=== PATIENT | female | born 1930 | race Caucasian/White ===

== ENCOUNTER 2019-04-23 22:34 | Inpatient (IN) ==
[2019-04-24] MEDS ORDERED: Naloxone 0.4 MG/ML INJ IVP PRN (03:16)
[2019-04-24 04:09] LABS: Basophils % 0.4 %; Hematocrit 23.8 % (35.3-44.9); Hemoglobin 7.8 g/dL (11.5-15.4); Immature Granulocytes % 2.6 % (0-4); Lymphocytes # 0.9 K/mcL (0.6-4.6); Lymphocytes % 12.3 %; Mean Corpuscular HGB Conc 32.8 g/dL (31.6-35.5); Mean Corpuscular Hemoglobin 34.4 pg (28.0-33.3); Mean Corpuscular Volume 104.8 fL (83.0-100.0); Mean Platelet Volume 10.5 fL (9.4-12.4); Monocytes # 0.3 K/mcL (0.0-1.3); Monocytes % 3.9 %; Neutrophils # 6.2 K/mcL (1.6-8.9); Nucleated Red Blood Cells 0.9 /100 WBC (0); Platelet Count 316 K/mcL (140-400); Red Blood Count 2.27 M/mcL (3.82-4.97); Red Cell Distribution Width 18.6 % (11.5-14.5); Segmented Neutrophils % 80.8 %; White Blood Count 7.7 K/mcL (4.3-11.1)
[2019-04-24 04:17] LABS: INR 1.1
[2019-04-24 04:27] LABS: Albumin 3.3 g/dL (3.5-5.7); Albumin/Globulin Ratio 0.8 (1.1-2.2); Calcium 8.9 mg/dL (8.6-10.3); Globulin 4.3 g/dL (2.4-3.5); Magnesium 1.9 mg/dL (1.6-2.6); Phosphorous 3.8 mg/dL (2.7-4.5); Potassium 4.3 mEq/L (3.5-5.1); Total Protein 7.6 g/dL (6.4-8.9)
[2019-04-24 04:51] LABS: Immature Reticulocyte % 24.1 % (11.0-38.0); Retculocyte # 0.04 M/mcL (0.05-0.10); Reticulocyte % 1.8 % (1.6-2.8)
[2019-04-24 04:53] LABS: Vitamin D 25 Hydroxy 10 ng/mL (30-80)
[2019-04-24 04:55] LABS: Folate > 22.3 ng/mL (3.0-16.0); Vitamin B12 413 pg/mL (250-1100)
[2019-04-24] MEDS: *HR* Heparin 5,000 UNIT/ML VIAL SQ SCH ×3 (05:12→21:16)
[2019-04-24] MEDS ORDERED: *HR* LORazepam 2 MG/ML VIAL IVP ONE (11:23)
[2019-04-25] MEDS: *HR* Heparin 5,000 UNIT/ML VIAL SQ SCH ×3 (05:32→21:35)
[2019-04-25 07:40] LABS: Hematocrit 22.4 % (35.3-44.9); Hemoglobin 7.1 g/dL (11.5-15.4); Mean Corpuscular HGB Conc 31.7 g/dL (31.6-35.5); Mean Corpuscular Hemoglobin 34.3 pg (28.0-33.3); Mean Corpuscular Volume 108.2 fL (83.0-100.0); Mean Platelet Volume 10.9 fL (9.4-12.4); Platelet Count 317 K/mcL (140-400); Red Blood Count 2.07 M/mcL (3.82-4.97); Red Cell Distribution Width 18.6 % (11.5-14.5); White Blood Count 8.5 K/mcL (4.3-11.1)
[2019-04-25] MEDS ORDERED: Torsemide 20 MG TABLET PO SCH (09:00)
[2019-04-25 09:09] LABS: Calcium 8.9 mg/dL (8.6-10.3); Potassium 4.2 mEq/L (3.5-5.1)
[2019-04-25] MEDS: Folic Acid 1 MG TABLET PO SCH (09:41)
[2019-04-25 18:30] LABS: Hematocrit 22.8 % (35.3-44.9); Hemoglobin 7.7 g/dL (11.5-15.4)
[2019-04-26 04:30] LABS: Hematocrit 22.3 % (35.3-44.9); Mean Corpuscular HGB Conc 31.4 g/dL (31.6-35.5); Mean Corpuscular Hemoglobin 34.3 pg (28.0-33.3); Mean Corpuscular Volume 109.3 fL (83.0-100.0); Mean Platelet Volume 10.5 fL (9.4-12.4); Platelet Count 299 K/mcL (140-400); Red Blood Count 2.04 M/mcL (3.82-4.97); Red Cell Distribution Width 18.7 % (11.5-14.5); White Blood Count 8.1 K/mcL (4.3-11.1)
[2019-04-26 04:56] LABS: Calcium 8.7 mg/dL (8.6-10.3); Potassium 3.6 mEq/L (3.5-5.1)
[2019-04-26] MEDS: *HR* Heparin 5,000 UNIT/ML VIAL SQ SCH ×3 (05:10→23:20)
[2019-04-26] MEDS: Folic Acid 1 MG TABLET PO SCH (08:51)
[2019-04-26] MEDS ORDERED: Acetaminophen IV 500 MG/50 ML INFUS..BTL IVPB ONE (08:59)
[2019-04-26 11:05] LABS: Uric Acid 9.4 mg/dL (2.3-7.6)
[2019-04-26] MEDS: predniSONE 20 MG TABLET PO SCH (16:47)
[2019-04-26 18:07] LABS: % Iron Saturation 23 % (15-50); Iron 57 mcg/dL (50-170); Transferrin 177 mg/dL (203-362)
[2019-04-27] MEDS: *HR* Heparin 5,000 UNIT/ML VIAL SQ SCH ×3 (05:32→21:21)
[2019-04-27 07:19] LABS: Basophils % 0.2 %; Hematocrit 22.7 % (35.3-44.9); Hemoglobin 7.2 g/dL (11.5-15.4); Immature Granulocytes % 1.5 % (0-4); Lymphocytes # 1.1 K/mcL (0.6-4.6); Lymphocytes % 22.2 %; Mean Corpuscular HGB Conc 31.7 g/dL (31.6-35.5); Mean Corpuscular Volume 107.1 fL (83.0-100.0); Mean Platelet Volume 10.8 fL (9.4-12.4); Monocytes # 0.6 K/mcL (0.0-1.3); Monocytes % 12.1 %; Neutrophils # 3.1 K/mcL (1.6-8.9); Platelet Count 314 K/mcL (140-400); Red Blood Count 2.12 M/mcL (3.82-4.97); Red Cell Distribution Width 18.1 % (11.5-14.5); White Blood Count 4.8 K/mcL (4.3-11.1)
[2019-04-27 07:42] LABS: Calcium 8.6 mg/dL (8.6-10.3); Potassium 4.2 mEq/L (3.5-5.1)
[2019-04-27] MEDS: predniSONE 20 MG TABLET PO SCH (08:52)
[2019-04-27] MEDS: Folic Acid 1 MG TABLET PO SCH (08:52)
[2019-04-28 03:49] LABS: Hematocrit 21.9 % (35.3-44.9); Hemoglobin 7.3 g/dL (11.5-15.4); Mean Corpuscular HGB Conc 33.3 g/dL (31.6-35.5); Mean Corpuscular Hemoglobin 34.1 pg (28.0-33.3); Mean Corpuscular Volume 102.3 fL (83.0-100.0); Mean Platelet Volume 10.1 fL (9.4-12.4); Platelet Count 304 K/mcL (140-400); Red Blood Count 2.14 M/mcL (3.82-4.97); Red Cell Distribution Width 18.1 % (11.5-14.5); White Blood Count 6.4 K/mcL (4.3-11.1)
[2019-04-28 04:15] LABS: Calcium 8.9 mg/dL (8.6-10.3); Potassium 4.2 mEq/L (3.5-5.1)
[2019-04-28] MEDS: *HR* Heparin 5,000 UNIT/ML VIAL SQ SCH ×3 (05:35→20:13)
[2019-04-28] MEDS: predniSONE 20 MG TABLET PO SCH (08:27)
[2019-04-28] MEDS: Folic Acid 1 MG TABLET PO SCH (08:27)
[2019-04-28] MEDS ORDERED: traZODone 50 MG TABLET PO PRN (10:20)
[2019-04-28] MEDS ORDERED: Melatonin 3 MG TABLET PO SCH (21:00)
[2019-04-29] MEDS: *HR* Heparin 5,000 UNIT/ML VIAL SQ SCH (05:17)
[2019-04-29 06:33] LABS: Hematocrit 22.5 % (35.3-44.9); Hemoglobin 7.3 g/dL (11.5-15.4); Mean Corpuscular HGB Conc 32.4 g/dL (31.6-35.5); Mean Corpuscular Hemoglobin 33.6 pg (28.0-33.3); Mean Corpuscular Volume 103.7 fL (83.0-100.0); Mean Platelet Volume 10.3 fL (9.4-12.4); Platelet Count 319 K/mcL (140-400); Red Blood Count 2.17 M/mcL (3.82-4.97); Red Cell Distribution Width 18.3 % (11.5-14.5); Segmented Neutrophils % 41.9 %; White Blood Count 6.1 K/mcL (4.3-11.1)
[2019-04-29 06:34] LABS: Basophils % 0.3 %; Eosinophils # 0.1 K/mcL (0.0-0.6); Immature Granulocytes % 1.1 % (0-4); Lymphocytes # 2.4 K/mcL (0.6-4.6); Lymphocytes % 39.7 %; Neutrophils # 2.6 K/mcL (1.6-8.9); Nucleated Red Blood Cells 1.1 /100 WBC (0)
[2019-04-29 06:56] LABS: Calcium 8.7 mg/dL (8.6-10.3); Potassium 4.2 mEq/L (3.5-5.1)
[2019-04-29] MEDS: predniSONE 20 MG TABLET PO SCH (08:23)
[2019-04-29] MEDS: Folic Acid 1 MG TABLET PO SCH (08:23)
[2019-04-29 11:02] VITALS: BP 157/65
== END 2019-04-29 12:57 | DRG 552 ==
LOC: 3NENU → SUATTDRO 04-24 00:40
PROVIDERS: ADMIT Family Medicine; ATTEND Internal Medicine

== ENCOUNTER 2020-06-16 00:54 | Inpatient (IN) ==
[2020-06-16] MEDS ORDERED: Naloxone 0.4 MG/ML INJ IVP PRN (12:53)
[2020-06-16] MEDS ORDERED: Ondansetron 4 MG/2 ML VIAL IVP PRN (12:59)
[2020-06-16 14:21] LABS: Hematocrit 23.8 % (35.3-44.9); Hemoglobin 7.5 g/dL (11.5-15.4); Mean Corpuscular HGB Conc 31.5 g/dL (31.6-35.5); Mean Corpuscular Hemoglobin 30.4 pg (28.0-33.3); Mean Corpuscular Volume 96.4 fL (83.0-100.0); Mean Platelet Volume 11.3 fL (9.4-12.4); Nucleated Red Blood Cells 4.2 /100 WBC (0); Platelet Count 273 K/mcL (140-400); Red Blood Count 2.47 M/mcL (3.82-4.97); Red Cell Distribution Width 23.2 % (11.5-14.5); White Blood Count 8.5 K/mcL (4.3-11.1)
[2020-06-16 14:26] LABS: INR 1.2; Prothrombin Time 14.2 Seconds (9.4-12.1)
[2020-06-16 14:40] LABS: Calcium 8.4 mg/dL (8.6-10.3); Potassium 4.4 mEq/L (3.5-5.1)
[2020-06-16 14:41] LABS: Troponin I 0.03 ng/mL (< 0.04)
[2020-06-16] MEDS: Pantoprazole 40 MG VIAL IVP SCH ×2 (14:52→18:19)
[2020-06-16] MEDS: MethylPREDNISolone 40 MG/ML VIAL IVP SCH (14:52)
[2020-06-16 14:57] LABS: Anisocytosis 2+ (Not Present); Hypochromasia Present (Not Present); Lymphocytes # 1.7 K/mcL (0.6-4.6); Neutrophils # 5.8 K/mcL (1.6-8.9)
[2020-06-16 14:58] LABS: Ovalocytes 1+ (Not Present); Platelet Estimate Normal (Normal); Poikilocytosis 1+ (Not Present); Target Cells 1+ (Not Present)
[2020-06-16 14:59] LABS: Polychromasia 1+ (Not Present)
[2020-06-16] MEDS ORDERED: Ipratropium/Albuterol Neb 3 ML IH SCH (16:00)
[2020-06-16] MEDS: Ipratropium/Albuterol Neb 3 ML IH SCH ×3 (16:09→20:08)
[2020-06-16] MEDS ORDERED: Piperacillin/Tazobactam 3.375 GM in 0.9 % Sodium Chloride Mini Bag 100 ML IVPB ONE (18:58)
[2020-06-16 20:30] LABS: Hematocrit 22.6 % (35.3-44.9); Hemoglobin 7.2 g/dL (11.5-15.4); Mean Corpuscular HGB Conc 31.9 g/dL (31.6-35.5); Mean Corpuscular Hemoglobin 30.9 pg (28.0-33.3); Nucleated Red Blood Cells 3.3 /100 WBC (0); Platelet Count 274 K/mcL (140-400); Red Blood Count 2.33 M/mcL (3.82-4.97); Red Cell Distribution Width 23.6 % (11.5-14.5); White Blood Count 8.7 K/mcL (4.3-11.1)
[2020-06-16] MEDS: Piperacillin/Tazobactam 3.375 GM in 0.9 % Sodium Chloride Mini Bag 100 ML IVPB SCH (21:02)
[2020-06-16 21:03] LABS: Anisocytosis 2+ (Not Present); Hypochromasia Present (Not Present); Platelet Estimate Normal (Normal)
[2020-06-16 21:06] LABS: Ovalocytes 1+ (Not Present)
[2020-06-16 21:07] LABS: Poikilocytosis 1+ (Not Present)
[2020-06-16 21:09] LABS: Lymphocytes # 0.7 K/mcL (0.6-4.6); Monocytes # 0.2 K/mcL (0.0-1.3); Neutrophils # 7.7 K/mcL (1.6-8.9)
[2020-06-16] MEDS ORDERED: 0.9 % Sodium Chloride 250 ML IVC SCH (21:15)
[2020-06-16 21:32] LABS: Adenovirus Not Detected (Not Detect); Bordetella Pertussis Not Detected (Not Detect); Chlamydophila pneumoniae Not Detected (Not Detect); Coronavirus 229E Not Detected (Not Detect); Coronavirus HKU1 Not Detected (Not Detect); Coronavirus NL63 Not Detected (Not Detect); Coronavirus OC43 Not Detected (Not Detect); Human Metapneumovirus Not Detected (Not Detect); Human Rhinovirus/Enterovirus Not Detected (Not Detect); Influenza A Subtype 2009 H1 Not Detected (Not Detect); Influenza B Not Detected (Not Detect); Mycoplasma pneumoniae Not Detected (Not Detect); Parainfluenza Virus 1 Not Detected (Not Detect); Parainfluenza Virus 2 Not Detected (Not Detect); Parainfluenza Virus 3 Not Detected (Not Detect); Parainfluenza Virus 4 Not Detected (Not Detect); Respiratory Syncytial Virus Not Detected (Not Detect); SARS-CoV-2 Not Detected (Not Detect)
[2020-06-17] MEDS: Ipratropium/Albuterol Neb 3 ML IH SCH ×7 (00:12→23:25)
[2020-06-17] MEDS ORDERED: Acetaminophen IV 500 MG/50 ML BAG IVPB ONE (01:15)
[2020-06-17] MEDS: MethylPREDNISolone 40 MG/ML VIAL IVP SCH ×2 (02:55→14:59)
[2020-06-17] MEDS: Piperacillin/Tazobactam 3.375 GM in 0.9 % Sodium Chloride Mini Bag 100 ML IVPB SCH ×3 (04:44→21:49)
[2020-06-17 05:24] LABS: Basophils % 0.8 %; Hematocrit 23.1 % (35.3-44.9); Hemoglobin 7.4 g/dL (11.5-15.4); Immature Granulocytes % 2.2 % (0-4); Lymphocytes # 0.4 K/mcL (0.6-4.6); Lymphocytes % 7.1 %; Mean Corpuscular Hemoglobin 30.7 pg (28.0-33.3); Mean Corpuscular Volume 95.9 fL (83.0-100.0); Mean Platelet Volume 10.6 fL (9.4-12.4); Monocytes # 0.6 K/mcL (0.0-1.3); Monocytes % 11.5 %; Nucleated Red Blood Cells 4.5 /100 WBC (0); Platelet Count 232 K/mcL (140-400); Red Blood Count 2.41 M/mcL (3.82-4.97); Red Cell Distribution Width 22.1 % (11.5-14.5); Segmented Neutrophils % 78.4 %; White Blood Count 5.1 K/mcL (4.3-11.1)
[2020-06-17 05:42] LABS: Anisocytosis 2+ (Not Present); Macrocytosis Present (Not Present); Ovalocytes 1+ (Not Present); Poikilocytosis 1+ (Not Present); Target Cells 1+ (Not Present)
[2020-06-17 05:43] LABS: Calcium 8.2 mg/dL (8.6-10.3); Platelet Estimate Normal (Normal); Potassium 4.4 mEq/L (3.5-5.1)
[2020-06-17] MEDS: Pantoprazole 40 MG VIAL IVP SCH ×2 (06:06→17:25)
[2020-06-17] MEDS ORDERED: Dextrose Gel 15 GM/37.5 ML TUBE PO PRN ×2 (08:01)
[2020-06-17] MEDS ORDERED: D5% in Water 1,000 ML IVC PRN (08:01)
[2020-06-17] MEDS ORDERED: *HR* Dextrose 50 % in Water (Vial) 50 ML VIAL IVP PRN (08:01)
[2020-06-17] MEDS: Insulin LISPRO 300 UNITS/3 ML VIAL SUBQ SCH ×2 (13:10→17:23)
[2020-06-17] MEDS ORDERED: Lidocaine -MPF 2% 2 ML VIAL ONE (14:57)
[2020-06-17] MEDS ORDERED: *HR* Propofol 200 MG/20 ML VIAL IVP ONE (14:57)
[2020-06-17] MEDS ORDERED: *HR* Metoprolol 5 MG/5 ML VIAL IVP ONE (15:23)
[2020-06-17] MEDS ORDERED: *HR* Etomidate 40 MG/20 ML VIAL IVP ONE (15:27)
[2020-06-17] MEDS: Furosemide 20 MG/2 ML VIAL IVP SCH (17:25)
[2020-06-17] MEDS ORDERED: Melatonin 3 MG TABLET PO PRN (17:35)
[2020-06-18] MEDS: Insulin LISPRO 300 UNITS/3 ML VIAL SUBQ SCH (01:03)
[2020-06-18] MEDS: MethylPREDNISolone 40 MG/ML VIAL IVP SCH ×3 (02:49→16:42)
[2020-06-18 03:11] LABS: Basophils % 0.4 %; Hematocrit 24.1 % (35.3-44.9); Hemoglobin 7.5 g/dL (11.5-15.4); Immature Granulocytes % 1.9 % (0-4); Lymphocytes # 0.4 K/mcL (0.6-4.6); Lymphocytes % 6.9 %; Mean Corpuscular HGB Conc 31.1 g/dL (31.6-35.5); Mean Corpuscular Hemoglobin 30.2 pg (28.0-33.3); Mean Corpuscular Volume 97.2 fL (83.0-100.0); Monocytes # 0.9 K/mcL (0.0-1.3); Monocytes % 17.5 %; Neutrophils # 3.8 K/mcL (1.6-8.9); Nucleated Red Blood Cells 5.4 /100 WBC (0); Platelet Count 224 K/mcL (140-400); Red Blood Count 2.48 M/mcL (3.82-4.97); Red Cell Distribution Width 22.6 % (11.5-14.5); Segmented Neutrophils % 73.3 %; White Blood Count 5.2 K/mcL (4.3-11.1)
[2020-06-18 03:27] LABS: Albumin 3.1 g/dL (3.5-5.7); Bilirubin,Total 1.1 mg/dL (0.3-1.0); Calcium 8.4 mg/dL (8.6-10.3); Globulin 3.1 g/dL (2.4-3.5); Magnesium 1.6 mg/dL (1.6-2.6); Phosphorous 3.4 mg/dL (2.7-4.5); Potassium 4.2 mEq/L (3.5-5.1); Total Protein 6.2 g/dL (6.4-8.9)
[2020-06-18] MEDS: Ipratropium/Albuterol Neb 3 ML IH SCH ×6 (03:40→23:24)
[2020-06-18] MEDS: Piperacillin/Tazobactam 3.375 GM in 0.9 % Sodium Chloride Mini Bag 100 ML IVPB SCH ×3 (04:28→21:05)
[2020-06-18] MEDS: Pantoprazole 40 MG VIAL IVP SCH (06:24)
[2020-06-18] MEDS: Furosemide 20 MG/2 ML VIAL IVP SCH ×2 (08:09→16:42)
[2020-06-18] MEDS: Folic Acid 1 MG TABLET PO SCH (08:10)
[2020-06-18] MEDS: Sucralfate 1 GM TABLET PO SCH ×3 (11:08→21:05)
[2020-06-18] MEDS: Budesonide/Formoterol 160/4.5 1 PUFF INH IH SCH ×2 (11:25→19:34)
[2020-06-18] MEDS ORDERED: Perflutren Lipid Microsphere 1.3 ML in 0.9 % Sodium Chloride 8.7 ML IVP PRN (13:32)
[2020-06-18] MEDS: Metoprolol XL (24 HR) Succ 25 MG TAB.ER.24H PO SCH (15:12)
[2020-06-18 15:49] LABS: ABG Base Excess -4 mEq/L (-2 to 3); ABG HCO3 22 mEq/L (21-27); ABG Oxygen Saturation 95 % (95-98); ABG PCO2 38 mmHg (35-45); ABG PH 7.36 pH Units (7.32-7.45); ABG PO2 78 mmHg (85-104); ABG TCO2 23 mEq/L (20-26)
[2020-06-19] MEDS: MethylPREDNISolone 40 MG/ML VIAL IVP SCH (02:25)
[2020-06-19] MEDS: Ipratropium/Albuterol Neb 3 ML IH SCH ×6 (04:00→23:12)
[2020-06-19] MEDS: Piperacillin/Tazobactam 3.375 GM in 0.9 % Sodium Chloride Mini Bag 100 ML IVPB SCH ×2 (04:05→12:46)
[2020-06-19] MEDS: Budesonide/Formoterol 160/4.5 1 PUFF INH IH SCH ×2 (07:23→20:05)
[2020-06-19] MEDS: predniSONE 20 MG TABLET PO SCH (09:47)
[2020-06-19] MEDS: Folic Acid 1 MG TABLET PO SCH (09:47)
[2020-06-19] MEDS: Sucralfate 1 GM TABLET PO SCH ×4 (09:47→20:25)
[2020-06-19] MEDS: Metoprolol XL (24 HR) Succ 25 MG TAB.ER.24H PO SCH (09:48)
[2020-06-19] MEDS: Furosemide 40 MG/4 ML VIAL IVP SCH ×2 (09:48→16:40)
[2020-06-19 10:25] LABS: Estimated Average Glucose 111 mg/dl; Hemoglobin A1C 5.5 %
[2020-06-20] MEDS: Ipratropium/Albuterol Neb 3 ML IH SCH ×4 (03:34→15:41)
[2020-06-20 05:02] LABS: Calcium 8.7 mg/dL (8.6-10.3); Magnesium 1.8 mg/dL (1.6-2.6); Phosphorous 3.9 mg/dL (2.7-4.5); Potassium 3.9 mEq/L (3.5-5.1)
[2020-06-20 05:05] LABS: Hematocrit 22.3 % (35.3-44.9)
[2020-06-20] MEDS: Metoprolol XL (24 HR) Succ 25 MG TAB.ER.24H PO SCH (09:42)
[2020-06-20] MEDS: Folic Acid 1 MG TABLET PO SCH (09:42)
[2020-06-20] MEDS: predniSONE 20 MG TABLET PO SCH (09:42)
[2020-06-20] MEDS: Sucralfate 1 GM TABLET PO SCH ×3 (09:44→17:00)
[2020-06-20] MEDS: Budesonide/Formoterol 160/4.5 1 PUFF INH IH SCH (10:27)
[2020-06-20 16:02] VITALS: BP 120/55
== END 2020-06-20 18:54 | disposition short-term general hospital (02) | DRG 377 ==
LOC: 3ANU → SUATTDRO 12:28
PROVIDERS: ADMIT Student in an Organized Health Care Education/Training Program; ATTEND Internal Medicine
PROC: ENDOEBX (2020-06-17 12:20)

== ENCOUNTER 2020-09-22 18:15 | Inpatient (IN) ==
[2020-09-22] MEDS ORDERED: Naloxone 0.4 MG/ML INJ IVP PRN (21:00)
[2020-09-22] MEDS ORDERED: *HR* OxyCODONE Immed Rel 5 MG TABLET PO PRN (21:00)
[2020-09-22] MEDS ORDERED: Acetaminophen 325 MG TABLET PO PRN (21:00)
[2020-09-22] MEDS ORDERED: *HR* HYDROcodone/Acet 5/325 mg TABLET PO PRN (21:00)
[2020-09-22] MEDS ORDERED: Ondansetron 4 MG/2 ML VIAL IVP PRN (21:00)
[2020-09-23] MEDS ORDERED: Ipratropium/Albuterol Neb 3 ML IH PRN (02:27)
[2020-09-23 05:33] LABS: Basophils # 0.1 K/mcL (0.0-0.2); Eosinophils # 0.1 K/mcL (0.0-0.6); Eosinophils % 1.3 %; Hematocrit 28.2 % (35.3-44.9); Hemoglobin 9.1 g/dL (11.5-15.4); Lymphocytes # 1.8 K/mcL (0.6-4.6); Lymphocytes % 19.6 %; Mean Corpuscular HGB Conc 32.3 g/dL (31.6-35.5); Mean Corpuscular Hemoglobin 32.9 pg (28.0-33.3); Mean Corpuscular Volume 101.8 fL (83.0-100.0); Mean Platelet Volume 11.5 fL (9.4-12.4); Monocytes # 1.4 K/mcL (0.0-1.3); Monocytes % 15.7 %; Neutrophils # 5.5 K/mcL (1.6-8.9); Nucleated Red Blood Cells 7.6 /100 WBC (0); Platelet Count 245 K/mcL (140-400); Red Blood Count 2.77 M/mcL (3.82-4.97); Red Cell Distribution Width 26.9 % (11.5-14.5); Segmented Neutrophils % 60.4 %; White Blood Count 9.1 K/mcL (4.3-11.1)
[2020-09-23 05:41] LABS: INR 1.2; Prothrombin Time 13.9 Seconds (9.4-12.1)
[2020-09-23 05:55] LABS: Albumin 2.9 g/dL (3.5-5.7); Bilirubin,Total 1.4 mg/dL (0.3-1.0); Chol/HDL Ratio 2.5 (0-4.9); Magnesium 1.6 mg/dL (1.6-2.6); Phosphorous 4.1 mg/dL (2.7-4.5); Potassium 5.2 mEq/L (3.5-5.1); Total Protein 5.9 g/dL (6.4-8.9)
[2020-09-23 05:56] LABS: Anisocytosis 2+ (Not Present); Macrocytosis Present (Not Present); Ovalocytes 1+ (Not Present); Poikilocytosis 1+ (Not Present)
[2020-09-23 05:57] LABS: Platelet Estimate Normal (Normal); Target Cells 1+ (Not Present)
[2020-09-23] MEDS: *HR* Heparin 5,000 UNIT/ML VIAL SQ SCH ×3 (06:17→23:18)
[2020-09-23] MEDS: Metoprolol XL (24 HR) Succ 25 MG TAB.ER.24H PO SCH (07:57)
[2020-09-23] MEDS: Magic Mouthwash 10 ML UD Cup PO SCH ×3 (07:58→15:47)
[2020-09-23] MEDS: Furosemide 40 MG/4 ML VIAL IVP SCH ×2 (07:58→20:22)
[2020-09-23] MEDS: cefTRIAXone 1,000 MG in Water for inj. (sterile) 10 ML IVP SCH (08:13)
[2020-09-24 05:04] LABS: Basophils # 0.1 K/mcL (0.0-0.2); Basophils % 1.2 %; Eosinophils # 0.3 K/mcL (0.0-0.6); Eosinophils % 4.6 %; Hematocrit 27.5 % (35.3-44.9); Hemoglobin 8.7 g/dL (11.5-15.4); Immature Granulocytes % 1.6 % (0-4); Lymphocytes # 2.2 K/mcL (0.6-4.6); Lymphocytes % 30.1 %; Mean Corpuscular HGB Conc 31.6 g/dL (31.6-35.5); Mean Corpuscular Hemoglobin 32.5 pg (28.0-33.3); Mean Corpuscular Volume 102.6 fL (83.0-100.0); Mean Platelet Volume 11.2 fL (9.4-12.4); Monocytes # 1.3 K/mcL (0.0-1.3); Monocytes % 18.3 %; Neutrophils # 3.2 K/mcL (1.6-8.9); Nucleated Red Blood Cells 7.8 /100 WBC (0); Platelet Count 260 K/mcL (140-400); Red Blood Count 2.68 M/mcL (3.82-4.97); Red Cell Distribution Width 27.3 % (11.5-14.5); Segmented Neutrophils % 44.2 %; White Blood Count 7.3 K/mcL (4.3-11.1)
[2020-09-24 05:28] LABS: Calcium 7.8 mg/dL (8.6-10.3); Potassium 4.6 mEq/L (3.5-5.1)
[2020-09-24] MEDS: *HR* Heparin 5,000 UNIT/ML VIAL SQ SCH ×3 (08:01→20:41)
[2020-09-24] MEDS: Metoprolol XL (24 HR) Succ 25 MG TAB.ER.24H PO SCH (08:01)
[2020-09-24] MEDS: Furosemide 40 MG/4 ML VIAL IVP SCH (08:01)
[2020-09-24] MEDS: Magic Mouthwash 10 ML UD Cup PO SCH ×3 (08:01→15:27)
[2020-09-24] MEDS: cefTRIAXone 1,000 MG in Water for inj. (sterile) 10 ML IVP SCH (08:02)
[2020-09-24] MEDS: Furosemide 40 MG TABLET PO SCH (15:27)
[2020-09-24] MEDS ORDERED: Perflutren Lipid Microsphere 1.3 ML in 0.9 % Sodium Chloride 8.7 ML IVP PRN (18:59)
[2020-09-24] MEDS: Mirtazapine 15 MG TABLET PO SCH (20:41)
[2020-09-24] MEDS: Melatonin 3 MG TABLET PO PRN (23:47)
[2020-09-25 02:46] LABS: Hematocrit 24.9 % (35.3-44.9); Hemoglobin 8.2 g/dL (11.5-15.4); Mean Corpuscular HGB Conc 32.9 g/dL (31.6-35.5); Mean Corpuscular Hemoglobin 33.5 pg (28.0-33.3); Mean Corpuscular Volume 101.6 fL (83.0-100.0); Mean Platelet Volume 11.1 fL (9.4-12.4); Platelet Count 227 K/mcL (140-400); Red Blood Count 2.45 M/mcL (3.82-4.97); Red Cell Distribution Width 26.3 % (11.5-14.5); White Blood Count 5.6 K/mcL (4.3-11.1)
[2020-09-25 03:11] LABS: Calcium 7.5 mg/dL (8.6-10.3); Potassium 4.1 mEq/L (3.5-5.1)
[2020-09-25] MEDS: *HR* Heparin 5,000 UNIT/ML VIAL SQ SCH ×3 (05:25→20:08)
[2020-09-25] MEDS: Furosemide 40 MG TABLET PO SCH (09:03)
[2020-09-25] MEDS: Magic Mouthwash 10 ML UD Cup PO SCH ×3 (09:17→16:26)
[2020-09-25] MEDS: Furosemide 40 MG/4 ML VIAL IVP SCH (09:17)
[2020-09-25] MEDS: cefTRIAXone 1,000 MG in Water for inj. (sterile) 10 ML IVP SCH (09:18)
[2020-09-25] MEDS: Metoprolol XL (24 HR) Succ 25 MG TAB.ER.24H PO SCH (11:48)
[2020-09-25] MEDS: Mirtazapine 15 MG TABLET PO SCH (20:08)
[2020-09-25] MEDS: Melatonin 3 MG TABLET PO PRN (23:24)
[2020-09-26 02:52] LABS: Calcium 7.4 mg/dL (8.6-10.3); Potassium 3.9 mEq/L (3.5-5.1)
[2020-09-26] MEDS: *HR* Heparin 5,000 UNIT/ML VIAL SQ SCH ×3 (04:58→20:54)
[2020-09-26] MEDS: Furosemide 40 MG/4 ML VIAL IVP SCH (07:41)
[2020-09-26] MEDS: Magic Mouthwash 10 ML UD Cup PO SCH ×3 (07:41→16:14)
[2020-09-26] MEDS: Metoprolol XL (24 HR) Succ 25 MG TAB.ER.24H PO SCH (07:43)
[2020-09-26] MEDS: cefTRIAXone 1,000 MG in Water for inj. (sterile) 10 ML IVP SCH (07:43)
[2020-09-26] MEDS ORDERED: Furosemide 40 MG/4 ML VIAL IVP ONE (18:00)
[2020-09-26] MEDS: Mirtazapine 15 MG TABLET PO SCH (20:54)
[2020-09-27 04:57] LABS: Basophils # 0.1 K/mcL (0.0-0.2); Basophils % 1.2 %; Eosinophils # 0.4 K/mcL (0.0-0.6); Eosinophils % 8.4 %; Hematocrit 26.8 % (35.3-44.9); Hemoglobin 8.4 g/dL (11.5-15.4); Immature Granulocytes % 1.8 % (0-4); Lymphocytes # 2.3 K/mcL (0.6-4.6); Lymphocytes % 46.4 %; Mean Corpuscular HGB Conc 31.3 g/dL (31.6-35.5); Mean Corpuscular Hemoglobin 32.1 pg (28.0-33.3); Mean Corpuscular Volume 102.3 fL (83.0-100.0); Mean Platelet Volume 11.6 fL (9.4-12.4); Monocytes # 0.8 K/mcL (0.0-1.3); Monocytes % 16.7 %; Neutrophils # 1.3 K/mcL (1.6-8.9); Nucleated Red Blood Cells 1.8 /100 WBC (0); Platelet Count 239 K/mcL (140-400); Red Blood Count 2.62 M/mcL (3.82-4.97); Red Cell Distribution Width 26.5 % (11.5-14.5); Segmented Neutrophils % 25.5 %
[2020-09-27 05:11] LABS: Calcium 7.5 mg/dL (8.6-10.3); Potassium 3.9 mEq/L (3.5-5.1)
[2020-09-27] MEDS: *HR* Heparin 5,000 UNIT/ML VIAL SQ SCH ×3 (06:01→22:54)
[2020-09-27 06:06] LABS: Anisocytosis 1+ (Not Present); Platelet Estimate Normal (Normal); Poikilocytosis 1+ (Not Present)
[2020-09-27] MEDS: Magic Mouthwash 10 ML UD Cup PO SCH ×3 (07:50→16:33)
[2020-09-27] MEDS: Metoprolol XL (24 HR) Succ 25 MG TAB.ER.24H PO SCH (07:50)
[2020-09-27] MEDS: Furosemide 40 MG/4 ML VIAL IVP SCH ×2 (07:50→22:53)
[2020-09-27] MEDS: cefTRIAXone 1,000 MG in Water for inj. (sterile) 10 ML IVP SCH (07:50)
[2020-09-27] MEDS ORDERED: Sennosides/Docusate Sodium TABLET PO PRN (13:42)
[2020-09-27] MEDS: Melatonin 3 MG TABLET PO PRN (22:53)
[2020-09-27] MEDS: Mirtazapine 15 MG TABLET PO SCH (22:53)
[2020-09-28 02:04] LABS: Basophils # 0.1 K/mcL (0.0-0.2); Basophils % 1.5 %; Eosinophils # 0.4 K/mcL (0.0-0.6); Eosinophils % 5.2 %; Hemoglobin 8.9 g/dL (11.5-15.4); Immature Granulocytes % 1.9 % (0-4); Lymphocytes # 2.5 K/mcL (0.6-4.6); Lymphocytes % 37.3 %; Mean Corpuscular HGB Conc 31.8 g/dL (31.6-35.5); Mean Corpuscular Hemoglobin 32.1 pg (28.0-33.3); Mean Corpuscular Volume 101.1 fL (83.0-100.0); Mean Platelet Volume 11.5 fL (9.4-12.4); Monocytes # 1.2 K/mcL (0.0-1.3); Neutrophils # 2.4 K/mcL (1.6-8.9); Nucleated Red Blood Cells 2.1 /100 WBC (0); Platelet Count 252 K/mcL (140-400); Red Blood Count 2.77 M/mcL (3.82-4.97); Red Cell Distribution Width 25.8 % (11.5-14.5); Segmented Neutrophils % 36.1 %; White Blood Count 6.7 K/mcL (4.3-11.1)
[2020-09-28 02:26] LABS: Calcium 7.8 mg/dL (8.6-10.3); Potassium 3.7 mEq/L (3.5-5.1)
[2020-09-28 02:35] LABS: Anisocytosis 1+ (Not Present); Platelet Estimate Normal (Normal); Poikilocytosis 1+ (Not Present); Reactive Lymphocytes Present (Not Present); Toxic Granulation Present (Not Present)
[2020-09-28] MEDS: *HR* Heparin 5,000 UNIT/ML VIAL SQ SCH ×3 (05:36→20:32)
[2020-09-28] MEDS: Furosemide 40 MG/4 ML VIAL IVP SCH ×2 (10:21→20:16)
[2020-09-28] MEDS: Magic Mouthwash 10 ML UD Cup PO SCH ×3 (10:21→17:06)
[2020-09-28] MEDS: Metoprolol XL (24 HR) Succ 25 MG TAB.ER.24H PO SCH (10:21)
[2020-09-28] MEDS ORDERED: Lidocaine Viscous Oral Soln 15 ML SOLUTION MM PRN (14:12)
[2020-09-28] MEDS ORDERED: 0.9 % Sodium Chloride 500 ML IVC ONE (14:13)
[2020-09-28] MEDS: *HR* FentaNYL (PF) 100 MCG/2 ML VIAL IVP PRN ×2 (14:55→15:00)
[2020-09-28] MEDS: *HR* Midazolam HCl 5 MG/5 ML VIAL IVP PRN ×2 (14:55→15:00)
[2020-09-28] MEDS: Mirtazapine 15 MG TABLET PO SCH (20:17)
[2020-09-28] MEDS ORDERED: Benzonatate 100 MG CAPSULE PO PRN (20:44)
[2020-09-29 02:50] LABS: Basophils # 0.1 K/mcL (0.0-0.2); Basophils % 1.2 %; Eosinophils # 0.3 K/mcL (0.0-0.6); Eosinophils % 5.4 %; Hemoglobin 8.5 g/dL (11.5-15.4); Immature Granulocytes % 1.7 % (0-4); Lymphocytes # 2.2 K/mcL (0.6-4.6); Mean Corpuscular HGB Conc 32.7 g/dL (31.6-35.5); Mean Corpuscular Hemoglobin 33.2 pg (28.0-33.3); Mean Corpuscular Volume 101.6 fL (83.0-100.0); Mean Platelet Volume 11.6 fL (9.4-12.4); Monocytes # 0.9 K/mcL (0.0-1.3); Monocytes % 16.5 %; Neutrophils # 1.7 K/mcL (1.6-8.9); Nucleated Red Blood Cells 2.1 /100 WBC (0); Platelet Count 221 K/mcL (140-400); Red Blood Count 2.56 M/mcL (3.82-4.97); Red Cell Distribution Width 26.6 % (11.5-14.5); Segmented Neutrophils % 32.2 %; White Blood Count 5.2 K/mcL (4.3-11.1)
[2020-09-29 03:02] LABS: Calcium 7.7 mg/dL (8.6-10.3); Potassium 4.1 mEq/L (3.5-5.1)
[2020-09-29 03:33] LABS: Anisocytosis 1+ (Not Present); Basophilic Stippling 1+ (Not Present); Macrocytosis Present (Not Present); Poikilocytosis 1+ (Not Present)
[2020-09-29 03:34] LABS: Hypochromasia Present (Not Present); Platelet Estimate Normal (Normal)
[2020-09-29] MEDS: *HR* Heparin 5,000 UNIT/ML VIAL SQ SCH ×3 (05:35→20:35)
[2020-09-29] MEDS: Magic Mouthwash 10 ML UD Cup PO SCH ×3 (09:39→17:17)
[2020-09-29] MEDS: Metoprolol XL (24 HR) Succ 25 MG TAB.ER.24H PO SCH (09:41)
[2020-09-29] MEDS: Furosemide 40 MG/4 ML VIAL IVP SCH (09:41)
[2020-09-29 17:09] LABS: Appearance of Pleural Fl Clear (Clear); RBC,Pleural Fluid < 2000 RBC/mcL
[2020-09-29 17:18] LABS: Total Protein,Pleural Fluid 2.7 g/dL
[2020-09-29 17:43] LABS: Basophils,Pleural Fluid 0 %; Eosinophils,Pleural Fluid 0 %; Lymphocytes,Pleural Fluid 100 %; Monocytes,Pleural Fluid 0 %
[2020-09-29] MEDS: Mirtazapine 15 MG TABLET PO SCH (20:35)
[2020-09-29] MEDS: Melatonin 3 MG TABLET PO PRN (22:38)
[2020-09-30] MEDS: *HR* Heparin 5,000 UNIT/ML VIAL SQ SCH ×2 (05:04→13:38)
[2020-09-30] MEDS: Metoprolol XL (24 HR) Succ 25 MG TAB.ER.24H PO SCH (08:58)
[2020-09-30] MEDS: Magic Mouthwash 10 ML UD Cup PO SCH ×2 (08:59→12:04)
[2020-09-30] MEDS ORDERED: Torsemide 20 MG TABLET PO SCH (09:00)
[2020-09-30 12:29] VITALS: BP 127/57
[2020-09-30 12:57] LABS: Hematocrit 27.8 % (35.3-44.9); Hemoglobin 8.9 g/dL (11.5-15.4)
[2020-09-30 13:11] LABS: Adenovirus Not Detected (Not Detect); Bordetella Pertussis Not Detected (Not Detect); Chlamydophila pneumoniae Not Detected (Not Detect); Coronavirus 229E Not Detected (Not Detect); Coronavirus HKU1 Not Detected (Not Detect); Coronavirus NL63 Not Detected (Not Detect); Coronavirus OC43 Not Detected (Not Detect); Human Metapneumovirus Not Detected (Not Detect); Human Rhinovirus/Enterovirus Not Detected (Not Detect); Influenza A Subtype 2009 H1 Not Detected (Not Detect); Influenza B Not Detected (Not Detect); Mycoplasma pneumoniae Not Detected (Not Detect); Parainfluenza Virus 1 Not Detected (Not Detect); Parainfluenza Virus 2 Not Detected (Not Detect); Parainfluenza Virus 3 Not Detected (Not Detect); Parainfluenza Virus 4 Not Detected (Not Detect); Respiratory Syncytial Virus Not Detected (Not Detect); SARS-CoV-2 Not Detected (Not Detect)
[2020-09-30 13:24] LABS: Calcium 7.9 mg/dL (8.6-10.3); Potassium 4.1 mEq/L (3.5-5.1)
== END 2020-09-30 15:44 | DRG 291 ==
LOC: 2ANU → SUATTDRO 20:08
PROVIDERS: ADMIT Internal Medicine; ATTEND Student in an Organized Health Care Education/Training Program